=== PATIENT | female | born 1955 | race Caucasian/White ===

== ENCOUNTER 2021-03-25 14:06 | Day surgery (SDC) | payer MEDICARE, BC ==
--- NOTE | 2021-03-25 12:23 | PCM.PREANE ---
Preanesthetic Assessment - Procedure Proposed Procedure: colonoscopy - Anesthesia/Transfusion/Family Hx Anesthesia History: Prior Anesthesia Without Reaction Family History of Anesthesia Reaction: No Transfusion History: Prior Transfusion Without Reaction - Review of Systems General: No Symptoms Pulmonary: No Symptoms Cardiovascular: Palpitations (every once in a while- cardiology aware) Gastrointestinal: No Symptoms Neurological: No Symptoms Other: Reports: Diabetes - Physical Assessment NPO Status Date: 03/25/21 NPO Status Time: 07:30 (prep) Vital Signs: Last Vital Signs Temp 98.7 F 03/25/21 11:00 Pulse 16 L 03/25/21 11:00 Resp 16 03/25/21 11:00 BP 123/42 L 03/25/21 11:00 Pulse Ox 98 03/25/21 11:00 Height: 5 ft 2 in Weight: 51.71 kg ASA Class: 2 Mental Status: Alert & Oriented x3 Airway Class: Mallampati = 1 Dentition: Reports: Normal Dentition Thyro-Mental Finger Breadths: 3 Mouth Opening Finger Breadths: 3 ROM/Head Extension: Full Lungs: Clear to Auscultation, Normal Respiratory Effort Cardiovascular: Regular Rate, Regular Rhythm - Allergies Allergies/Adverse Reactions: Allergies Allergy/AdvReac Type Severity Reaction Status Date / Time codeine Allergy Cannot Verified 03/25/21 11:47 Remember propoxyphene HCl Allergy Cannot Verified 03/25/21 11:47 [From Adelina] Remember - Blood Blood Available: No - Acknowledgements Anesthesia Type Planned: MAC Pt an Appropriate Candidate for the Planned Anesthesia: Yes Alternatives and Risks of Anesthesia Discussed w Pt/Guardian: Yes Pt/Guardian Understands and Agrees with Anesthesia Plan: Yes PreAnesthesia Questionnaire Cardiovascular History: Reports: Other (See Below) Other Cardiovascular History: cardiomyopathy, PVC's Respiratory History: Reports: Pneumonia, Recurrent Gastrointestinal History: Reports: Other (See Below) Other Gastrointestinal History: Bowel resection, LLQ pain, RLQ guarding, dehydration Genitourinary History: Reports: Renal Calculus, Other (See Below) Other Genitourinary History: kidney stones, dysuria, flank pain, hematuria, UTI, lithotripsy [employer] History: Reports: , Other (See Below) Other OB/BYN History: , breast lumpectomy Musculoskeletal History: Reports: Osteoarthritis, Osteoporosis, Other (See Below) Other Musculoskeletal History: knee jensen's cyst, knee pain, plantar fasciitis Psychiatric History: Reports: None Endocrine/Metabolic History: Reports: Vitamin D Deficiency, Other (See Below) Other Endocrine/Metabolic History: thyroid nodule Hematologic History: Reports: None Immunologic History: Reports: None Oncologic (Cancer) History: Reports: None Dermatologic History: Reports: None - Infectious Disease History Infectious Disease History: Reports: Novel Coronavirus - Past Surgical History Head Surgeries/Procedures: Reports: None HEENT Surgical History: Reports: Tonsillectomy Cardiovascular Surgical History: Reports: None Respiratory Surgical History: Reports: None GI Surgical History: Reports: Cholecystectomy, Colonoscopy, Small Bowel Female Surgical History: Reports: Section, D&C Male Surgical History: Reports: None Endocrine Surgical History: Reports: None Neurological Surgical History: Reports: None Musculoskeletal Surgical History: Reports: Other (See Below) (varicous veins) Oncologic Surgical History: Reports: None Dermatological Surgical History: Reports: Other (See Below) - SUBSTANCE USE Tobacco Use Status *Q: Never Tobacco User Tobacco Use Within Last Twelve Months: No Second Hand Smoke Exposure: No Days Per Week of Alcohol Use: 0 Recreational Drug Use History: No - HOME MEDS Home Medications: Home Meds Alendronate Sodium [Fosamax] 70 mg PO Q7D 03/24/21 [History] Calcium Carbonate [Calcium] 600 mg PO DAILY 03/24/21 [History] Cholecalciferol (Vitamin D3) [Vitamin D3] 2,000 unit PO DAILY 03/24/21 [History] Multivitamin 1 tab PO DAILY 03/24/21 [History] - CURRENT (IN HOUSE) MEDS Current Meds: Current Medications Lactated Ringer's (Ringers, Lactated) 1,000 mls @ 125 mls/hr IV ASDIRECTED SAVAGE Stop: 03/25/21 23:00 Last Admin: 03/25/21 11:47 Dose: 125 mls/hr Documented by: Lidocaine/Sodium Bicarbonate (Lidocaine 1%/Sod Bicarbonate In Ns 8.4% 1 Ml Syringe) 0.25 ml IDERM ONETIME PRN PRN Reason: Prior to IV Start Stop: 03/25/21 18:00 Sodium Chloride (Sodium Chloride 0.9% 10 Ml Syringe) 10 ml FLUSH 0900,2100 [facility] Stop: 03/25/21 18:00
--- NOTE | 2021-03-25 13:43 | PCM.PRNOTE ---
- Free Text/Narrative Note: Date: 03/25/2021 Procedure: diagnostic colonoscopy Indication: chronic radiologice abnormality of sigmoid colon History: proximal hemicolectomy remotely for benign disease, last colonoscopy 5 years ago, no history of polyps Endoscopist: Steve Mirza MD Findings: Annular stricture of the anal canal that initially would not permit passage of the entire index finger. Cicatrix was able to be gently stretched and colonoscope was advanced without difficulty. Prep was excellent. The ileocolonic anastomosis was visualized. No polyps were identified. There was no endoscopic finding to correlate with noted thickening of the sigmoid colon on CT. Detailed Report: Patient was taken to the endoscopy suite and placed in left lateral decubitus position. Timeout was performed and monitored anesthesia care was initiated. The anus appeared normal. Digital rectal exam was significant for an annular stricture within the anal canal. This would not initially permit passage of the proximal interphalangeal joint of the first finger. This was gently stretched, and the endoscope was able to pass beyond this area. No mass or tissue friability was appreciated in the length of the stricture was very short. The colonoscope was advanced all the way to the ileocolic anastomosis. The scope was slowly withdrawn and mucosal surfaces carefully inspected. No polyps were identified. No abnormalities were noted within the sigmoid colon to explain radiologic finding of sigmoid wall thickening on the CT scan. On retroflexion, no abnormalities were noted; a single hypertrophied anal papilla was visualized. Air was suctioned from the distal colon and rectum prior to withdrawal of the scope. The patient tolerated the procedure well.
--- NOTE | 2021-03-25 13:49 | PCM48HPAN ---
Post Anesthesia Note - EVALUATION WITHIN 48HRS OF ANESTHETIC Vital Signs in Normal Range: Yes Patient Participated in Evaluation: Yes Respiratory Function Stable: Yes Airway Patent: Yes Cardiovascular Function Stable: Yes Hydration Status Stable: Yes Pain Control Satisfactory: Yes Nausea and Vomiting Control Satisfactory: Yes Mental Status Recovered: Yes Vital Signs: Last Vital Signs Temp 94.6 F L 03/25/21 13:36 Pulse 81 03/25/21 13:36 Resp 14 03/25/21 13:36 BP 102/53 L 03/25/21 13:36 Pulse Ox 99 03/25/21 13:36
[~2021-03-25 14:06] MED LIST: Lactated Ringers 1,000 ML IV SCH; Lidocaine 1%/Sod Bicarbonate in NS 8.4% 1 ML Syringe IDERM PRN; Propofol 200 MG/20 ML SDV ONE; Sodium Chloride 0.9% 10 ML Syringe FLUSH SCH; fentaNYL 100 MCG/2 ML SDV ONE
[2021-03-25 16:18] VITALS: BP 138/74; PULSE 65
== END 2021-03-25 15:10 | disposition home or self-care (01) ==
LOC: JD.SDS 14:06
PROVIDERS: ATTEND Surgery
DX: K63.89 Other specified diseases of intestine (principal); R14.0 Abdominal distension (gaseous); I42.9 Cardiomyopathy, unspecified; I50.9 Heart failure, unspecified; E87.6 Hypokalemia; M81.0 Age-related osteoporosis without current pathological fracture; E55.9 Vitamin D deficiency, unspecified; Z88.5 Allergy status to narcotic agent; Z88.8 Allergy status to other drugs, medicaments and biological substances; Z79.899 Other long term (current) drug therapy; Z98.0 Intestinal bypass and anastomosis status; Z90.49 Acquired absence of other specified parts of digestive tract; Z98.890 Other specified postprocedural states
CPT/HCPCS: 45378; J2704; J3010; J7120

== ENCOUNTER 2022-01-06 10:36 | Emergency (ER) | payer MEDICARE, BC ==
[2022-01-06] MEDS ORDERED: Sodium Chloride 0.9% 1,000 ML IV ONE (15:02)
[2022-01-06] MEDS ORDERED: Metoclopramide 10 MG/2 ML SDV IVPUSH ONE (15:02)
[2022-01-07 16:00] VITALS: BP 119/58; PULSE 101
[2022-02-04 15:44] LABS: ESTIMATED GFR 70 mL/min (>60)
[2022-02-04 15:45] LABS: CORONAVIRUS COVID-19 NAA NEGATIVE (NEGATIVE); STREP A BY PCR NOT DETECTED (NOT DETECT)
== END 2022-01-06 16:57 | disposition home or self-care (01) ==
LOC: JD.ED 10:36
DX: J06.9 Acute upper respiratory infection, unspecified (principal)
CPT/HCPCS: 36415; 71045; 80053; 81001; 84484; 85025; 85610; 85730; 87651; 93005; 96361; 96374; 99285; J2765; J7030; U0002; 99282

== ENCOUNTER 2023-11-22 04:21 | Emergency (ER) | payer MEDICARE, BC ==
[2023-11-22 05:00] VITALS: BP 122/65; PULSE 90
[2023-11-22] MEDS: HYDROmorphone 0.5 MG/0.5 ML Syringe IVPUSH ONE (05:20)
[2023-11-22] MEDS: Sodium Chloride 0.9% 1,000 ML IV STA (05:25)
[2023-11-22] MEDS: Ondansetron 4 MG/2 ML SDV IVPUSH ONE (05:25)
[2023-11-22] MEDS: Ketorolac 30 MG/ML SDV IVPUSH ONE (05:25)
[2023-11-22] MEDS: Sodium Chloride 0.9% 10 ML Syringe FLUSH PRN (05:27)
[2023-11-22 05:33] LABS: BASOPHILS PERCENT AUTO 0.2 % (0.0-1.0); EOSINOPHILS PERCENT AUTO 0.1 % (0.0-6.0); HEMATOCRIT 41.9 % (37.0-47.0); HEMOGLOBIN 14.4 gm/dl (12.0-16.0); IMMATURE GRAN ABSOLUTE AUTO 0.04 K/mm3 (0.00-0.05); IMMATURE GRAN PERCENT AUTO 0.4 % (0.0-0.4); LYMPHOCYTES ABSOLUTE AUTO 0.3 K/mm3 (1.0-4.8); LYMPHOCYTES PERCENT AUTO 2.9 % (24.0-44.0); MEAN CORPUSCULAR HEMOGLOBIN 31.5 pg (28.0-32.0); MEAN CORPUSCULAR HGB CONC 34.4 g/dl (32.0-36.0); MEAN CORPUSCULAR VOLUME 91.7 fl (83.0-99.0); MEAN PLATELET VOLUME 10.3 fl (9.4-12.3); MONOCYTES ABSOLUTE AUTO 0.6 K/mm3 (0.0-0.8); MONOCYTES PERCENT AUTO 5.5 % (0.0-8.0); NEUTROPHILS ABSOLUTE AUTO 10.1 K/mm3 (1.8-7.7); NEUTROPHILS PERCENT AUTO 90.9 % (41.0-71.0); PLATELET COUNT,PLT 191 K/mm3 (150-400); RED BLOOD CELL COUNT 4.57 M/mm3 (4.10-5.30); WHITE BLOOD CELL COUNT,WBC 11.13 K/mm3 (3.9-11.3)
[2023-11-22] MEDS: Iopamidol 612 MG/ML 100 ML Bottle IVPUSH ONE (05:46)
[2023-11-22 05:47] LABS: A/G RATIO 1.1 (1-2); ALBUMIN 3.9 g/dl (3.4-5.0); ANION GAP 12.9 (5-15); BILIRUBIN TOTAL 1.9 mg/dL (0.2-1.0); CALCIUM 9.5 mg/dL (8.5-10.1); EST CRCL DRUG DOSING (CG) 41.99 mL/min; POTASSIUM,K 3.9 mEq/L (3.5-5.1); PROTEIN TOTAL,TP 7.4 g/dl (6.4-8.2)
[2023-11-22 06:19] LABS: SLIDE REVIEW ABNORMAL SMEAR
== END 2023-11-22 06:48 | disposition home or self-care (01) ==
LOC: JD.ED 04:21
DX: A08.4 Viral intestinal infection, unspecified (principal); I50.9 Heart failure, unspecified; Z86.16 Personal history of COVID-19; Z79.899 Other long term (current) drug therapy; Z88.5 Allergy status to narcotic agent; Z88.8 Allergy status to other drugs, medicaments and biological substances
CPT/HCPCS: 36415; 74177; 80053; 83690; 85025; 96361; 96374; 96375; 99284; J1885; J2405; J3490; J7030; Q9967